=== PATIENT | male | born 1985 | race Caucasian/White ===

== ENCOUNTER 2020-04-09 11:48 | Emergency (ER) | payer OTHER, BC ==
[~2020-04-09] VITALS: Ht 177.8 cm; Wt 102.1 kg
== END 2020-04-09 13:38 | disposition home or self-care (01) ==
LOC: ER 11:48
DX: S96.912A Strain of unspecified muscle and tendon at ankle and foot level, left foot, initial encounter (principal); S40.012A Contusion of left shoulder, initial encounter; S50.02XA Contusion of left elbow, initial encounter; V43.52XA Car driver injured in collision with other type car in traffic accident, initial encounter; Y92.410 Unspecified street and highway as the place of occurrence of the external cause
CPT/HCPCS: 72170; 73030; 73080; 73610; 99284-25